=== PATIENT | male | born 1960 | race Hispanic/Latino ===

== ENCOUNTER 2018-10-01 14:36 | Inpatient (IN) | payer BC ==
[2018-10-01] MEDS ORDERED: Cefepime 2 GM VIAL ONE (15:14)
[2018-10-01] MEDS ORDERED: Acetaminophen 500 MG TAB ONE (15:14)
[2018-10-01] MEDS ORDERED: Morphine 4 MG/ML VIAL ONE (15:16)
[2018-10-01] MEDS ORDERED: Lidocaine 1% w/Epinephrine 1:100K 20 ML VIAL ONE (15:17)
[2018-10-01 15:23] LABS: #Eosinphils 0.2 thou/uL (0.0-0.7); #Monocytes 0.9 thou/uL (0.11-0.59); #Neutrophils 12.6 thou/uL (1.40-6.50); %Basophils 0.1 % (0.0-1.0); %Eosinophils 1.2 % (0.0-10.0); %Monocytes 5.4 % (0.0-10.0); %Neutrophils 80.2 % (42.0-75.0); Hemoglobin 12.1 g/dL (14.0-18.0); Mean Corpuscular HGB CONC 33.8 g/dL (32.0-36.0); Mean Corpuscular Hemoglobin 31.2 pg (27.0-31.0); Mean Corpuscular Volume 92.2 fL (78.0-98.0); Mean Platelet Volume 9.1 fL (7.4-10.4); Platelet Count 222 thou/uL (130-400); RBC Distribution Width 12.3 % (11.5-14.5); Red Blood Cell (RBC) Count 3.87 mill/uL (4.70-6.10); White Blood Cell (WBC) Count 15.6 thou/uL (4.8-10.8)
[2018-10-01 15:45] LABS: ALT (SGPT) 19 U/L (8-55); AST (SGOT) 9 U/L (5-34); Albumin 3.7 g/dL (3.5-5.0); Alkaline Phosphatase 119 U/L (40-150); Anion Gap 18 mmol/L (10-20); BUN (Urea Nitrogen) 23 mg/dL (8.4-25.7); Bilirubin, Total 0.7 mg/dL (0.2-1.2); Calc. Creatinine Clearance 0 mL/min (70-130); Calcium 9.1 mg/dL (7.8-10.44); Carbon Dioxide 20 mmol/L (22-29); Chloride 93 mmol/L (98-107); Estimated GFR-MDRD 48; Potassium 3.6 mmol/L (3.5-5.1); Protein, Total 6.7 g/dL (6.0-8.3); Sodium 127 mmol/L (136-145)
[2018-10-01 15:52] LABS: Glucose 671 mg/dL (70-105)
[2018-10-01] MEDS ORDERED: Insulin Regular 300 UNITS/3 ML VIAL ONE (16:43)
--- NOTE | 2018-10-01 17:54 | RAD ---
EXAM: CHEST ONE VIEW HISTORY: Wound to posterior right thigh for 6 weeks. Patient is tachycardic and febrile. COMPARISON: None FINDINGS: A right subclavian central venous catheter is noted in place with the tip overlying the expected loca tion of the cavoatrial junction. No pneumothorax is identified. The cardiac silhouette is magnified by projection. Pulmonary vasculature is within normal limits. There is suboptimal evaluation of the l eft lung base primarily related to the technique of the exam and overlying soft tissue density. Left pleural effusion, atelectasis, or infiltrate cannot be entirely excluded. The lungs are otherwis e clear. The osseous structures are intact. IMPRESSION: 1. Suboptimal evaluation left lung base. Pleural fluid, infiltrate, or atelectasis would be difficult to exclude. 2. Right subclavian central venous catheter noted in place. No pneumothorax is seen.
[2018-10-01 18:55] VITALS: BMI 49.8
[2018-10-01 19:30] LABS: Lactic Acid 1.8 mmol/L (0.5-2.2)
[2018-10-01] MEDS ORDERED: Sodium Chloride 0.9% 1,000 ML IV SCH (19:35)
[2018-10-01] MEDS ORDERED: Guaifenesin DM 100-10/5 ML UDCUP PO PRN (20:19)
[2018-10-01] MEDS ORDERED: Senokot S 8.6-50 MG TAB PO PRN (20:19)
[2018-10-01] MEDS ORDERED: HumaLOG 300 UNITS/3 ML VIAL SC PRN (20:19)
[2018-10-01] MEDS ORDERED: Dextrose 50% Abboject 50 ML SYRINGE SLOW IVP PRN (20:19)
[2018-10-01] MEDS ORDERED: Dextrose 5% in Water 1,000 ML IV PRN (20:19)
[2018-10-01] MEDS ORDERED: HYDROcodone/Acetaminophen 5/325 mg Tablet PO PRN (20:19)
[2018-10-01] MEDS ORDERED: Bisacodyl 10 MG SUPP PR PRN (20:19)
[2018-10-01] MEDS ORDERED: Ondansetron PF 4 MG/2 ML Vial IVP PRN (20:19)
[2018-10-01] MEDS ORDERED: Acetaminophen 325 MG TAB PO PRN (20:19)
[2018-10-01 20:43] LABS: Fibrinogen 571 mg/dL (253-463); Platelet Count 190 thou/uL (130-400)
[2018-10-01 20:44] LABS: INR-International Normal Ratio 1.2; PTT 30.4 SEC (22.9-36.1); Prothrombin Time 14.8 SEC (12.0-14.7)
[2018-10-01 20:46] LABS: Hemoglobin A1c 9.6 % (4.0-6.0)
[2018-10-01 20:51] LABS: Lactic Acid 1.5 mmol/L (0.5-2.2)
[2018-10-01 20:58] LABS: FSP-Qualitative Normal (Normal)
[2018-10-01] MEDS: Piperacillin/Tazobactam 4.5 GM in Sodium Chloride 0.9% 100 ML IVPB SCH (21:02)
[2018-10-01] MEDS: Lactated Ringer's 1,000 ML IV SCH (21:02)
[2018-10-01] MEDS: Famotidine 20 MG TAB PO SCH (21:02)
[2018-10-01] MEDS: Insulin Glargine 20 UNITS in Pre-Filled Syringe 1 EACH SC SCH (21:28)
--- NOTE | 2018-10-01 22:06 | HP ---
REASON FOR ADMISSION: Sepsis, right posterior thigh large abscess, diabetes mellitus type 2, uncontrolled with serum sugars of 671, metabolic acidosis, acute kidney injury, and moderate dehydration. HISTORY OF PRESENTING ILLNESS: The patient gives history of having a wound in his posterior thigh for the last 6 weeks. This has been gradually enlarging. This afternoon, the patient started to have severe pain and could not extend his legs. He finally called his nephew who saw the wound and brought him to the emergency room. The initial plan was to go see his primary care physician, Dr. Llamas, but seeing the wound, the nephew brought him to emergency room. He has been feeling bad for the last 3 or 4 days now. He has had subjective fever. On arrival, the patient had a temperature of 101.8 degrees. He was evaluated by Dr. Rahman in the ER and has had bedside incision and drainage and the cultures have been taken. PAST MEDICAL AND SURGICAL HISTORY: Diabetes mellitus type 2, dyslipidemia, obesity, hypertension, and ventral hernia repair. CURRENT MEDICATIONS: Please note the patient does not recall any of his medication. He is not taking any insulins for sure. He gets mail order pharmacy and the nephew, who is here at bedside, will try to call us with medications. ALLERGIES: NO KNOWN DRUG ALLERGIES. PERSONAL HISTORY: Smokes 1-3 cigarettes a day. Does not abuse alcohol or drugs. He lives alone. He is not . No children. FAMILY HISTORY: Mother in her 70s. Father in his 60s. There is no history of CT, cancer or stroke in the family. SOCIAL HISTORY: The patient ambulates by himself. Works at [employer]. CODE STATUS: Full. Power of research attorney is his nephew, Mr. Chino Aranda, number to reach him is [phone]. REVIEW OF SYSTEMS: CONSTITUTIONAL: Negative for weight loss or gain, ability to conduct usual activities. SKIN: Negative for rash, itching. EYES: Negative for double vision, pain. ENT/MOUTH: Negative for nose bleeding, neck stiffness, pain, tenderness. CARDIOVASCULAR: Negative for palpitations, dyspnea on exertion, orthopnea. RESPIRATORY: Negative for shortness of breath, wheezing, cough, hemoptysis, fever or night sweats. GASTROINTESTINAL: Negative for poor appetite, abdominal pain, heartburn, nausea , vomiting, constipation, or diarrhea. GENITOURINARY: Negative for urgency, frequency, dysuria, nocturia. MUSCULOSKELETAL: Negative for pain, swelling. NEUROLOGIC/PSYCHIATRIC: Negative for anxiety, depression. ALLERGY/IMMUNOLOGIC: Negative for skin rash, bleeding tendency. PHYSICAL EXAMINATION: GENERAL: The patient is a 58-year-old male, who is currently not in any acute distress. VITAL SIGNS: Blood pressure 140/70, pulse 130 per minute, respiratory rate 20 per minute, temperature 101.8 degrees Fahrenheit, his blood pressure dropped to 70/ 50 around 0310 hours. He was given a total of 3 L bolus in the ER. The patient has had a central line placed. NECK: Supple. No elevated JVD. HEENT: Eyes; extraocular muscles are intact. Pupils reacting to light. Oral cavity, mucous membranes are dry. No exudates or congestion. CARDIOVASCULAR: S1 and S2 heard. Tachycardic. No murmur. RESPIRATORY: Air entry 1+ bilateral. No rales or rhonchi. ABDOMEN: Soft. Bowel sounds heard. No tenderness, rigidity, or guarding. EXTREMITIES: The patient has a large 11 cm x 11 cm abscess on the posterior thigh of the right leg. He has had incision and drainage done and the wound is covered with dressing at present. Extremities, no peripheral edema or calf tenderness. VASCULAR: Peripheral pulses 1+ bilateral. No ischemic ulcerations or gangrene. CENTRAL NERVOUS SYSTEM: No gross focal deficits noted. NEURO: The patient is alert, awake, and oriented well. PSYCHIATRIC: The patient's mood is euthymic. No hallucinations or delusions. LABORATORY DATA: Sodium 127, potassium 3.6, serum bicarb 20, BUN 23, creatinine 1.52, glucose 671. Lactic acid 5.1, serum osmolality 300. Liver enzymes within normal limits. Albumin is 3.7. HbA1c done is 9.6. White count of 15, H and H 12 and 35, platelet count 222 with 80% neutrophils and MCV is 92. EKG done shows sinus tach at 116 beats per minute. There is Q-wave seen in leads III, aVF and V2, and V3. CLINICAL IMPRESSION AND PLAN: The patient will be admitted to medical floor. The initial plan was to send him to ICU, but his systolic blood pressure has come up to 120 after 3 L of IV fluids. He will be kept n.p.o. after midnight. I have spoken to Dr. Fraire, who will evaluate the patient with wound care in the morning. He will be on Zosyn and vancomycin. Cultures have been obtained in the ER and we will follow up on the results. Home medications are unknown at present and his nephew will call us in with the names of the medications from home. He will be on Levemir. We will give him 20 units of Levemir tonight and 10 units from morning. We will keep him on lactated Ringer's at 75 mL per hour. We will closely watch his potassium levels in the morning. Aspirin 81 mg daily. We will hold off on other cardiac medications as of now. He has EKG changes suggestive of possible prior CT. Echo with 2D Doppler will be obtained for LV function. The patient is totally asymptomatic as to chest pain or shortness of breath at present. We will continue to closely monitor him on medical floor. If the patient's blood pressures were to drop, he will be placed on pressors and transferred to ICU for close monitoring. We will obtain a portable chest x-ray as well in view of sepsis. Job ID: [id number] [facility]ITAL[facility]annah
[2018-10-01] MEDS ORDERED: Vancomycin HCl 1 GM in Premix Bag 1 BAG IVPB SCH (23:59)
[2018-10-02] MEDS ORDERED: Cefepime 2 GM in Sodium Chloride 0.9% 100 ML IVPB SCH (03:00)
[2018-10-02] MEDS ORDERED: Vancomycin HCl 1 GM in Premix Bag 1 BAG IVPB SCH (04:00)
[2018-10-02] MEDS: Piperacillin/Tazobactam 4.5 GM in Sodium Chloride 0.9% 100 ML IVPB SCH ×3 (05:47→22:39)
[2018-10-02 06:18] LABS: #Eosinphils 0.2 thou/uL (0.0-0.7); #Lymphocytes 1.8 thou/uL (1.20-3.40); #Monocytes 0.4 thou/uL (0.11-0.59); #Neutrophils 6.4 thou/uL (1.40-6.50); %Basophils 0.1 % (0.0-1.0); %Eosinophils 2.5 % (0.0-10.0); %Lymphocytes 20.1 % (21.0-51.0); %Monocytes 4.2 % (0.0-10.0); %Neutrophils 73.2 % (42.0-75.0); Hemoglobin 11.1 g/dL (14.0-18.0); Mean Corpuscular HGB CONC 31.9 g/dL (32.0-36.0); Mean Corpuscular Hemoglobin 30.4 pg (27.0-31.0); Mean Corpuscular Volume 95.6 fL (78.0-98.0); Mean Platelet Volume 8.6 fL (7.4-10.4); Platelet Count 191 thou/uL (130-400); RBC Distribution Width 12.8 % (11.5-14.5); Red Blood Cell (RBC) Count 3.63 mill/uL (4.70-6.10); White Blood Cell (WBC) Count 8.7 thou/uL (4.8-10.8)
[2018-10-02 06:30] LABS: Anion Gap 12 mmol/L (10-20); BUN (Urea Nitrogen) 23 mg/dL (8.4-25.7); Calc. Creatinine Clearance 165 mL/min (70-130); Calcium 8.3 mg/dL (7.8-10.44); Carbon Dioxide 21 mmol/L (22-29); Cardiac Risk 2.6 (Less than 4.5); Chloride 106 mmol/L (98-107); Cholesterol 97 mg/dl (< 200 Desired); Estimated GFR-MDRD 88; Glucose 216 mg/dL (70-105); HDL Cholesterol 37 mg/dL (>60 Neg Risk); LDL Cholesterol, Calculated 42 mg/dL; Potassium 3.9 mmol/L (3.5-5.1); Sodium 135 mmol/L (136-145); Triglycerides 90 mg/dL (Less than 150)
--- NOTE | 2018-10-02 08:07 | RAD ---
CHEST 1 VIEW: HISTORY: Followup tachycardia and fever. COMPARISON: Followup 10/01/2018 chest x-ray. FINDINGS: Minimal cardiomegaly. Right central line in place. No confluent pneumonia, overt edema, or pleural effusion. IMPRESSION: Cardiomegaly. Stable central line on the right. No significant new intrathoracic disease. POS: OFF
[2018-10-02] MEDS: Famotidine 20 MG TAB PO SCH ×2 (08:49→19:43)
[2018-10-02] MEDS: Aspirin 81 mg Enteric Coated Tablet PO SCH (08:49)
[2018-10-02] MEDS: Insulin Glargine 10 UNITS in Pre-Filled Syringe 1 EACH SC SCH (08:51)
[2018-10-02] MEDS: Enoxaparin Sodium 40 MG/0.4 ML SYRINGE SC SCH (08:51)
--- NOTE | 2018-10-02 10:24 | PDOC.HOSPP ---
- Subjective Encounter Date: 10/02/18 Encounter Time: 09:30 Subjective: feels better this am slept well last night no sob or pain - Objective Vital Signs & Weight: Vital Signs (12 hours) Temp Pulse Resp BP Pulse Ox 10/02/18 08:38 98 F 75 20 107/69 97 10/02/18 04:00 98.1 F 67 16 129/77 98 10/02/18 00:00 98.3 F 82 20 141/74 H 99 Weight Weight 281 lb 8 oz I&O: 10/01/18 10/02/18 10/03/18 06:59 06:59 06:59 Intake Total 1340 Output Total 650 Balance 690 Result Diagrams: 10/02/18 06:00 10/02/18 06:00 Additional Labs: Accuchecks 10/02/18 10/02/18 10/01/18 05:51 00:14 19:47 POC Glucose 227 H 342 H 399 H 10/01/18 18:10 POC Glucose 445 H ROS - Medication Medications: Active Medications Generic Name Dose Route Start Last Admin Trade Name Freq PRN Reason Stop Dose Admin Acetaminophen 650 mg 10/01/18 20:19 10/02/18 08:48 Tylenol PO 650 mg Q4H PRN Administration Headache/Fever/Mild Pain (1-3) Aspirin 81 mg 10/02/18 09:00 10/02/18 08:49 Ecotrin PO 81 mg DAILY MONTY Administration Enoxaparin Sodium 40 mg 10/02/18 09:00 10/02/18 08:51 Lovenox SC Not Given 0900 MONTY Famotidine 20 mg 10/01/18 21:00 10/02/18 08:49 Pepcid PO 20 mg BID MONTY Administration Insulin Glargine 20 units/ 0.2 mls @ 0 mls/hr 10/01/18 21:00 10/01/18 21:28 Miscellaneous Medication SC 0.2 mls HS MONTY Administration Insulin Glargine 10 units/ 0.1 mls @ 0 mls/hr 10/02/18 09:00 10/02/18 08:51 Miscellaneous Medication SC Not Given QAM MONTY Piperacillin Sod/Tazobactam 100 mls @ 200 mls/hr 10/01/18 22:00 10/02/18 05: 47 Sod 4.5 gm/ Sodium Chloride IVPB 100 mls Q8HR MONTY Administration Vancomycin HCl 1 gm/ Device 200 mls @ 200 mls/hr 10/02/18 04:00 10/02/18 04: 56 IVPB 200 mls 0400,1600 MONTY Administration Lactated Ringer's 1,000 mls @ 75 mls/hr 10/01/18 20:30 10/01/18 21:02 Lactated Ringer's IV 1,000 mls .[id number] MONTY Administration - Exam NAD, awake alert Eye: PERRL, anicteric sclera ENT: normocephalic atraumatic, no oropharyngeal lesions, moist mucosa Neck: supple, no JVD Heart: RRR, no murmur Respiratory: no wheezes, no rales Gastrointestinal: soft, non-tender, non-distended, normal bowel sounds Extremeties - other findings: right post thigh wound is in dressing Neurological: CN's grossly intact, no focal deficits Psychiatric: normal affect, A&O x 3 Hosp A/P (1) Abscess of right thigh Code(s): L02.415 - CUTANEOUS ABSCESS OF RIGHT LOWER LIMB Status: Acute (2) DM type 2 (diabetes mellitus, type 2) Status: Chronic Qualifiers: Diabetes mellitus superintendent terminal insulin use: without nursing home use Diabetes mellitus complication status: with hyperglycemia Qualified Code(s): E11.65 - Type 2 diabetes mellitus with hyperglycemia (3) Sepsis Code(s): A41.9 - SEPSIS, UNSPECIFIED ORGANISM Status: Acute Qualifiers: Sepsis type: sepsis due to unspecified organism Sepsis acute organ dysfunction status: without acute organ dysfunction Qualified Code(s): A41.9 - Sepsis, unspecified organism (4) Obesity Code(s): E66.9 - OBESITY, UNSPECIFIED Status: Chronic Qualifiers: Obesity classification: adult class 3 (BMI >= 40) Body mass index: BMI 45.0 -49.9 - Plan is on vanc and zosyn is npo for possible debridement by after taking a look with wound care this am fingerstick glucose is slowly trending down from 700's to 200's continue lantus, add metformin and glimepride on asp, lipid profile is normal, await echo results, will need outpt stress test elise gave full updates to patient and his nephew over phone
[2018-10-02] MEDS: Lactated Ringer's 1,000 ML IV SCH (11:26)
[2018-10-02 15:21] LABS: Vancomycin, Trough 9.5 ug/mL
[2018-10-02] MEDS: metFORMIN 500 MG TAB PO SCH (17:08)
[2018-10-02] MEDS: Vancomycin HCl 1.75 GM in Sodium Chloride 0.9% 500 ML IVPB SCH (17:09)
[2018-10-02] MEDS: HumaLOG 300 UNITS/3 ML VIAL SC PRN (17:10)
[2018-10-02] MEDS: Insulin Glargine 20 UNITS in Pre-Filled Syringe 1 EACH SC SCH (20:14)
--- NOTE | 2018-10-02 22:45 | CON ---
DATE OF CONSULTATION: REASON FOR CONSULT: Right posterior thigh abscess. HISTORY OF PRESENT ILLNESS: Mr. Aranda is a 58-year-old man who reports a 6-week history of pain and swelling on his right posterior thigh. He is a diabetic, but denies any injury to the area. He states that it became worse on the day before admission. So he asked the family member to look at it and was urged to come into the emergency room. In the emergency room, he was diagnosed with an abscess and the ER doctor performed an incision and drainage at the bedside. He has had a fair amount of drainage from the area since then and is feeling somewhat better today with less pain in the region. He has had some fevers at home and had a temperature of 101.8 degrees in the ER. He was also found to be fairly dehydrated and received IV fluids with improvement. PAST MEDICAL HISTORY: Diabetes, morbid obesity, hypertension, and hyperlipidemia. PAST SURGICAL HISTORY: Hernia repair. MEDICATIONS: Outpatient medications are not known by the patient, but his nephew is going to try to provide a list for the nurses. Inpatient medications include; 1. Aspirin. 2. Sliding scale insulin. 3. Lovenox. 4. Pepcid. 5. Glimepiride. 6. Glargine insulin. 7. Metformin. 8. Zosyn. 9. Vancomycin. ALLERGIES: HE HAS NO KNOWN DRUG ALLERGIES. REVIEW OF SYSTEMS: A 10-system review of systems is negative except per HPI. PHYSICAL EXAMINATION: VITAL SIGNS: The patient is afebrile. Heart rate in the 70s, respirations 20, 95% saturated on room air, blood pressure 101/67. GENERAL: Reveals a morbidly obese gentleman, in no acute distress. He is not flushed or toxic in appearance. He is not jaundiced or icteric. HEENT: Unremarkable. NECK: Supple without lymphadenopathy or thyroid nodules. HEART: Regular in its rate and rhythm without murmurs, rubs, or gallops. LUNGS: Clear to auscultation bilaterally although breath sounds are distant. ABDOMEN: Soft, nontender, and nondistended. EXTREMITIES: Warm and well perfused without edema. He has an area of erythema and tenderness on his right posterior thigh. He has a looped Logan drain in place with purulent fluid on the dressing. On probing of the wounds, there is another tract tunneling somewhat inferior to the [place] drain, but not a large amount of pus in the wound and no necrotic tissue. NEUROLOGIC: No focal deficits. PSYCHIATRIC: Alert, oriented, and appropriate. Primarily Faroese speaking. LABORATORY DATA: His white count has come down from 15 to 8. Hematocrit is stable at 34, platelets 191. Sodium slightly low at 135, but other electrolytes are unremarkable. BUN and creatinine are 23 and 0.89. Blood sugars have been ranging from 163 to 342. ASSESSMENT: Right posterior thigh abscess status post incision and drainage in the emergency room. This appears to be completely drained, but he does have one tunnel that could potentially reaccumulate. Compared to the picture which was taken last night, the erythema appears to be improving. I asked the wound care team to irrigate and pack the wounds. If this is not adequate and there is still purulence building up inside the wound, I will plan to take him to the operating room tomorrow for washout and additional drainage. The patient is in agreement with this plan. All of his questions were answered. Job ID: [id number]
[2018-10-03] MEDS: Lactated Ringer's 1,000 ML IV SCH ×4 (04:12→23:50)
[2018-10-03] MEDS: Vancomycin HCl 1.75 GM in Sodium Chloride 0.9% 500 ML IVPB SCH ×2 (04:14→16:40)
[2018-10-03] MEDS: Piperacillin/Tazobactam 4.5 GM in Sodium Chloride 0.9% 100 ML IVPB SCH ×3 (06:00→22:12)
[2018-10-03] MEDS: Insulin Glargine 10 UNITS in Pre-Filled Syringe 1 EACH SC SCH (08:46)
[2018-10-03] MEDS: metFORMIN 500 MG TAB PO SCH ×2 (08:46→17:10)
[2018-10-03] MEDS: Aspirin 81 mg Enteric Coated Tablet PO SCH (08:46)
[2018-10-03] MEDS: Famotidine 20 MG TAB PO SCH ×2 (08:46→20:28)
[2018-10-03] MEDS: Glimepiride 4 MG TAB PO SCH (08:46)
[2018-10-03] MEDS: Enoxaparin Sodium 40 MG/0.4 ML SYRINGE SC SCH ×2 (08:47→12:30)
[2018-10-03] MEDS: HumaLOG 300 UNITS/3 ML VIAL SC PRN ×2 (12:31→17:11)
[2018-10-03 16:01] LABS: Vancomycin, Trough 15.1 ug/mL
[2018-10-03] MEDS: Insulin Glargine 20 UNITS in Pre-Filled Syringe 1 EACH SC SCH (20:32)
--- NOTE | 2018-10-03 22:22 | PDOC.HOSPP ---
- Subjective Subjective: Spoke with [employer]. Doing well. No complaints. - Objective Vital Signs & Weight: Vital Signs (12 hours) Temp Pulse Resp BP Pulse Ox 10/03/18 19:00 97.9 F 84 18 133/75 96 Weight Admit Weight 281 lb 8 oz Weight 281 lb 3.2 oz I&O: 10/02/18 10/03/18 10/04/18 06:59 06:59 06:59 Intake Total 1340 3840 2100 Output Total 650 2000 1500 Balance 690 1840 600 Result Diagrams: 10/02/18 06:00 10/02/18 06:00 Additional Labs: Accuchecks 10/03/18 10/03/18 10/03/18 19:44 16:51 11:32 POC Glucose 123 H 153 H 175 H 10/03/18 04:22 POC Glucose 159 H Hospitalist ROS - Medication Medications: Active Medications Generic Name Dose Route Start Last Admin Trade Name Freq PRN Reason Stop Dose Admin Acetaminophen 650 mg 10/01/18 20:19 10/02/18 08:48 Tylenol PO 650 mg Q4H PRN Administration Headache/Fever/Mild Pain (1-3) Aspirin 81 mg 10/02/18 09:00 10/03/18 08:46 Ecotrin PO 81 mg DAILY MONTY Administration Enoxaparin Sodium 40 mg 10/02/18 09:00 10/03/18 12:30 Lovenox SC 40 mg 0900 MONTY Administration Famotidine 20 mg 10/01/18 21:00 10/03/18 20:28 Pepcid PO 20 mg BID MONTY Administration Glimepiride 4 mg 10/03/18 07:30 10/03/18 08:46 Amaryl PO 4 mg DAILY-AC MONTY Administration Insulin Glargine 20 units/ 0.2 mls @ 0 mls/hr 10/01/18 21:00 10/03/18 20:32 Miscellaneous Medication SC Not Given HS MONTY Insulin Glargine 10 units/ 0.1 mls @ 0 mls/hr 10/02/18 09:00 10/03/18 08:46 Miscellaneous Medication SC 0.1 mls QAM MONTY Administration Piperacillin Sod/Tazobactam 100 mls @ 200 mls/hr 10/01/18 22:00 10/03/18 22: 12 Sod 4.5 gm/ Sodium Chloride IVPB Not Given Q8HR MONTY Lactated Ringer's 1,000 mls @ 75 mls/hr 10/01/18 20:30 10/03/18 12:30 Lactated Ringer's IV Not Given .[id number] MONTY Vancomycin HCl 1.75 gm/ Sodium 500 mls @ 250 mls/hr 10/02/18 16:00 10/03/18 16:40 Chloride IVPB 500 mls 0400,1600 MONTY Administration Insulin Human Lispro 0 units 10/01/18 20:19 10/03/18 17:11 Humalog SC 3 unit .AGGRESSIVE SLIDING PRN Administration Aggressive Correctional Scale Metformin HCl 1,000 mg 10/02/18 17:00 10/03/18 17:10 Glucophage PO 1,000 mg BID-WM MONTY Administration - Exam General Appearance: NAD General - other findings: Obese ENT: normocephalic atraumatic, no oropharyngeal lesions, moist mucosa Heart: RRR, no murmur, no gallops, no rubs, normal peripheral pulses Respiratory: CTAB, no wheezes, no rales, no ronchi, normal chest expansion, no tachypnea, normal percussion Gastrointestinal: soft, non-tender, non-distended, normal bowel sounds, no palpable masses, no hepatomegaly, no splenomegaly, no bruit Extremities: no cyanosis, no clubbing, no edema Extremeties - other findings: Right post thigh wound with drain in place. Minimal cellulitic changes. Musculoskeletal: normal tone, normal strength, no muscle wasting Psychiatric: normal affect, normal behavior, A&O x 3 Hosp A/P (1) Morbid obesity Code(s): E66.01 - MORBID (SEVERE) OBESITY DUE TO EXCESS CALORIES Status: Acute (2) Abscess of right thigh Code(s): L02.415 - CUTANEOUS ABSCESS OF RIGHT LOWER LIMB Status: Acute (3) Sepsis Code(s): A41.9 - SEPSIS, UNSPECIFIED ORGANISM Status: Acute Qualifiers: Sepsis type: sepsis due to unspecified organism Sepsis acute organ dysfunction status: without acute organ dysfunction Qualified Code(s): A41.9 - Sepsis, unspecified organism (4) DM type 2 (diabetes mellitus, type 2) Status: Chronic Qualifiers: Diabetes mellitus [facility] insulin use: without termite treater helper use Diabetes mellitus complication status: with hyperglycemia Qualified Code(s): E11.65 - Type 2 diabetes mellitus with hyperglycemia - Plan Patient eager to go home. Discussed with Dr. Fraire. The abscess tunnels in a "V" shape and needs to be packed. No surgical intervention indicated. OK to discharge when family trained to care for wound. On families arrival, the nephew indicated that the patient lives alone and there is no one available to manage the wound. Discharge held. Will to stay until the wound no longer needs packing or OP wound care can be arranged. Blood sugars are doing ok. Unsure of his home meds. Continue metformin.
[2018-10-04] MEDS: Vancomycin HCl 1.75 GM in Sodium Chloride 0.9% 500 ML IVPB SCH (04:07)
[2018-10-04] MEDS: HumaLOG 300 UNITS/3 ML VIAL SC PRN (06:13)
[2018-10-04] MEDS: Piperacillin/Tazobactam 4.5 GM in Sodium Chloride 0.9% 100 ML IVPB SCH (06:29)
[2018-10-04 08:05] VITALS: BP 125/76; TEMP 98.1
[2018-10-04] MEDS: Aspirin 81 mg Enteric Coated Tablet PO SCH (09:02)
[2018-10-04] MEDS: Famotidine 20 MG TAB PO SCH (09:02)
[2018-10-04] MEDS: metFORMIN 500 MG TAB PO SCH (09:02)
[2018-10-04] MEDS: Insulin Glargine 10 UNITS in Pre-Filled Syringe 1 EACH SC SCH (09:03)
[2018-10-04] MEDS: Glimepiride 4 MG TAB PO SCH (09:05)
[2018-10-04] MEDS: Enoxaparin Sodium 40 MG/0.4 ML SYRINGE SC SCH (09:13)
[2018-10-04] MEDS ORDERED: Amoxicillin/Potassium Clav 875 MG TAB PO SCH ×2 (11:00→21:00)
--- NOTE | 2018-10-04 11:04 | PDOC.EVN ---
Event Note - Event Note Event Note: Discharged to home. summary dictated. #[id number]
[2018-10-04 11:05] LABS: #Eosinphils 0.3 thou/uL (0.0-0.7); #Lymphocytes 2.1 thou/uL (1.20-3.40); #Monocytes 0.4 thou/uL (0.11-0.59); %Basophils 0.5 % (0.0-1.0); %Eosinophils 4.2 % (0.0-10.0); %Lymphocytes 30.6 % (21.0-51.0); %Monocytes 6.3 % (0.0-10.0); %Neutrophils 58.5 % (42.0-75.0); Hemoglobin 12.1 g/dL (14.0-18.0); Mean Corpuscular HGB CONC 34.5 g/dL (32.0-36.0); Mean Corpuscular Volume 92.6 fL (78.0-98.0); Mean Platelet Volume 7.2 fL (7.4-10.4); Platelet Count 206 thou/uL (130-400); RBC Distribution Width 12.4 % (11.5-14.5); White Blood Cell (WBC) Count 6.8 thou/uL (4.8-10.8)
--- NOTE | 2018-10-04 11:27 | DIS ---
DATE OF ADMISSION: 10/01/2018 DATE OF DISCHARGE: 10/04/2018 PRIMARY CARE PHYSICIAN: Dallin Llamas MD DISCHARGE DIAGNOSES: 1. Severe sepsis with hypotension. 2. Right posterior thigh abscess with cellulitis. 3. Uncontrolled hypertension. 4. Morbid obesity. 5. Possible obstructive sleep apnea. 6. Diastolic heart failure. 7. Mild mitral regurgitation. 8. Status post incision and drainage of the thigh abscess. 9. Acute kidney injury. 10. Metabolic acidosis. 11. Hyponatremia. CONSULT: General Surgery. HOSPITAL COURSE: A 58-year-old obese male with known history of diabetes, admitted due to right posterior thigh swelling and pain associated with fever. The patient was found to be hypotensive on presentation as well as hyponatremic and had features of sepsis. He was resuscitated with IV fluid with improvement in blood pressure. The ED physician incised the abscess with drainage of significant amount of purulent material and culture was sent to lab. Culture came back positive for MSSA. The patient also was found to have elevated creatinine of 1.52 on presentation, as well as sodium of 127 and markedly elevated blood glucose of 671 with lactic acidosis. He was treated with IV fluid and insulin therapy with improvement in renal function and electrolyte derangements. Sodium resolved and creatinine return back to baseline of 0.89. Glycemic control improved with addition of Lantus and sliding scale insulin. General Surgery consult was obtained, and following re-evaluation of the wound, he recommended packing and no further surgical intervention. The patient remained stable and was subsequently discharged back home to complete oral antibiotics. The patient with morbid obesity as well as short and thick neck was noted to be snoring in this hospital. There is a high risk of obstructive sleep apnea. Echocardiogram obtained showed diastolic dysfunction as well as mild mitral and tricuspid regurgitation. The patient was advised to follow up with PCP for referral to sleep study to rule in or rule out obstructive sleep apnea. The patient also was advised to lose weight. PHYSICAL EXAMINATION: VITAL SIGNS: Temperature 98.1, pulse 70, respiratory rate 18, SpO2 of 98 on room air, and blood pressure is 125/76. GENERAL: Obese male, in no obvious distress. Afebrile. Anicteric. Acyanotic. HEENT: Normocephalic and atraumatic. Oral mucosa is moist. NECK: Short and thick neck with excess subcutaneous tissue. CARDIOVASCULAR: Regular rhythm and rate with normal heart sounds one and two. RESPIRATORY: Fair air entry bilaterally with few transmitted sounds. There is no respiratory distress or use of accessory muscles. GI: Obese with pannus. Nontender with normal bowel sounds. EXTREMITIES: Posterior right thigh dressing noted. No edema or obvious erythema was appreciated. Other extremities are grossly normal and atraumatic with no edema or erythema. SALES PLANNING COORDINATOR: Conscious and alert and oriented x3 with appropriate mental status. Cranial nerves 2 through 12 are grossly intact. DISCHARGE DISPOSITION: Home with home health. DISCHARGE CONDITION: Improved. DISCHARGE MEDICATIONS: 1. Glimepiride 4 mg p.o. daily. 2. Linagliptin/metformin 2.06/999 one tablet p.o. b.i.d. 3. Augmentin 875 mg p.o. b.i.d. for 14 days. 4. Aspirin 81 mg p.o. daily. 5. Insulin Lantus 20 units subcutaneously daily. FOLLOWUP: With PCP in 3 to 5 days. The patient will be seen by home health for wound care and medication management. Discharge took more than 38 minutes. Job ID: [id number]
[2018-10-04 11:29] LABS: Anion Gap 12 mmol/L (10-20); BUN (Urea Nitrogen) 10 mg/dL (8.4-25.7); Calc. Creatinine Clearance 204 mL/min (70-130); Calcium 9.6 mg/dL (7.8-10.44); Carbon Dioxide 27 mmol/L (22-29); Chloride 107 mmol/L (98-107); Estimated GFR-MDRD Greater than 90; Glucose 126 mg/dL (70-105); Potassium 4.8 mmol/L (3.5-5.1); Sodium 141 mmol/L (136-145)
--- NOTE | 2018-10-05 10:03 | PQF ---
BLADIMIR BURKS OBI, CHIZOBA C [id number] CLINICAL DOCUMENTATION CLARIFICATION FORM: POST DISCHARGE Addendum to original discharge summary date: ____ Late entry note date: __ DATE:10/05/18 ATTN:Jovany Esquivel Obi Please exercise your independent, professional judgment in responding to the clarification form. Clinical indicators are provided on the bottom of this form for your review Can you please specify whether Septic shock is ruled in or ruled out during this encounter? Please check appropriate box(s) to clarify if the following diagnosis has been ruled in or ruled out: Septic shock [ ] Ruled in diagnosis [ ] Continue to treat [ ] Resolved [ ] Ruled out diagnosis [ ] Cannot rule out diagnosis [ ] Other diagnosis please specify: [ ] Unable to determine For continuity of documentation, please document condition throughout progress notes and discharge summary. Thank You. CLINICAL INDICATORS: -ED Notes 10/01 - "Sepsis and septic shock due to large thigh abscess" -H&P 10/01 - "Temp 101.8 degrees" -H&P 10/01 - "his blood pressure dropped to 70/50" -DS 10/04 - "Severe sepsis with hypotension" RISK FACTOR: -H&P 10/01 - thigh abscess -H&P 10/01 - DM uncontrolled -H&P 10/01 - sepsis -H&P 10/01 - obesity -DS 10/04 - Right thigh cellulitis TREATMENTS: -ED Notes 10/01 - I&D of abscess -H&P 10/01 - wound culture -H&P 10/01 - 3L IV bolus -H&P 10/01 - admit to ICU -H&P 10/01 - Zosyn IV -H&P 10/01 - Vancomycin 1gm IV (This form is maintained as a part of the permanent medical record) 2014 [employer], [employer]. All Rights Reserved Verena [email or web address] [not provided] MTDD
== END 2018-10-04 17:08 | disposition home health service (06) | DRG 872 ==
LOC: ERS 14:36 → T4-A 18:29
PROVIDERS: ADMIT Internal Medicine; ATTEND Internal Medicine
PROC: 0H9HXZZ Drainage of Right Upper Leg Skin, External Approach (ICD-10-PCS; principal; 2018-10-01)
DX: A41.9 Sepsis, unspecified organism (principal); L03.115 Cellulitis of right lower limb; E87.2 Acidosis; N17.9 Acute kidney failure, unspecified; L02.415 Cutaneous abscess of right lower limb; Z68.42 Body mass index [BMI] 45.0-49.9, adult; I50.32 Chronic diastolic (congestive) heart failure; E87.1 Hypo-osmolality and hyponatremia; E86.0 Dehydration; E78.5 Hyperlipidemia, unspecified; F17.210 Nicotine dependence, cigarettes, uncomplicated; R65.20 Severe sepsis without septic shock; E11.65 Type 2 diabetes mellitus with hyperglycemia; E66.01 Morbid (severe) obesity due to excess calories; G47.33 Obstructive sleep apnea (adult) (pediatric); I11.0 Hypertensive heart disease with heart failure; I08.1 Rheumatic disorders of both mitral and tricuspid valves; Z79.899 Other long term (current) drug therapy; Z79.84 Long term (current) use of oral hypoglycemic drugs; Z79.82 Long term (current) use of aspirin
CPT/HCPCS: 10060; 36415; 36416; 36556; 71045; 80048; 80053; 80061; 80202; 83036; 83605; 83930; 85025; 85049; 85300; 85362; 85379; 85384; 85610; 85730; 87040; 87070; 87077; 87086; 87186; 87205; 93005; 93306; 96361; 96365; J0692; J1650; J1815; J2001; J2270; J2543; J3370; J3490; J7050

== ENCOUNTER 2019-05-23 08:28 | Outpatient (CLI) | payer BC ==
--- NOTE | 2019-05-23 09:10 | RAD ---
Exam: XR Knee Lt 2 View HISTORY: Left knee pain COMPARISON: None FINDINGS: Tricompartment osteophytosis is present. There is subchondral sclerosis and subchondral cystic change s involving the medial compartment left knee joint with severe joint space narrowing. There is subluxation of the tibia laterally with respect to the femur. A tiny rounded osseous density is seen in the anterior aspect of the knee joint at the level of the tibial spines suggesting a small intra-articular loose body measuring 5 mm. No acute fracture, dislocation, or other acute osseous abnormality is identified. IMPRESSION: 1. Osteoarthritis much greater involving the medial joint compartment left knee. 2. Small intra-articular loose body measuring 5 mm.
--- NOTE | 2019-05-23 10:54 | RAD ---
RIGHT KNEE 2 VIEWS: HISTORY: Right knee pain. FINDINGS/IMPRESSION: There are degenerative changes in the right knee with severe joint space narrowing involving the medi al tibial femoral compartment. No fracture, dislocation, or bony destruction is identified. POS: [id number]
== END 2019-05-23 08:29 | disposition home or self-care (01) ==
LOC: BICRAD 08:28
PROVIDERS: ATTEND Internal Medicine
DX: M25.561 Pain in right knee (principal); M25.562 Pain in left knee; G89.29 Other chronic pain; M17.0 Bilateral primary osteoarthritis of knee

== ENCOUNTER 2023-06-06 10:17 | Inpatient (IN) | payer BC, SELFPAY ==
[2023-06-06] MEDS ORDERED: dilTIAZem 25 MG/5 ML VIAL ONE (10:45)
[2023-06-06] MEDS ORDERED: Aspirin Chewable 81 MG TAB ONE (10:45)
[2023-06-06] MEDS ORDERED: Furosemide 40 MG (4 mL) VIAL ONE (10:45)
[2023-06-06 10:50] LABS: #Basophils 0.04 10x3/uL (0.0-0.2); %Basophils 0.5 % (0.0-1.0); %Eosinophils 1.7 % (0.0-10.0); %Lymphocytes 25.2 % (21.0-51.0); %Monocytes 7.2 % (0.0-10.0); %Neutrophils 65.3 % (42.0-75.0); Hematocrit 35.2 % (42.0-52.0); Hemoglobin 10.9 g/dL (14.0-18.0); Mean Corpuscular Hemoglobin 29.2 pg (27.0-31.0); Mean Corpuscular Volume 94.4 fL (78.0-98.0); Mean Platelet Volume 10.9 fL (7.4-10.4); Platelet Count 250 10x3/uL (130-400); RBC Distribution Width 14.3 % (11.5-14.5); Red Blood Cell (RBC) Count 3.73 mill/uL (4.70-6.10)
[2023-06-06 10:59] LABS: Anion Gap 16 mmol/L (10-20)
[2023-06-06] MEDS ORDERED: Cefepime 2 GM VIAL ONE (11:01)
[2023-06-06] MEDS ORDERED: Sodium Chloride 0.9% 100 ML ONE (11:01)
[2023-06-06 11:03] LABS: ALT (SGPT) 8 U/L (8-55); AST (SGOT) 11 U/L (5-34); Albumin 3.3 g/dL (3.4-4.8); Alkaline Phosphatase 91 U/L (40-110); BUN (Urea Nitrogen) 30 mg/dL (8.4-25.7); Bilirubin, Total 0.8 mg/dL (0.2-1.2); Calc. Creatinine Clearance 0 mL/min (70-130); Calcium 8.9 mg/dL (7.8-10.44); Carbon Dioxide 21 mmol/L (23-31); Chloride 107 mmol/L (98-107); Estimated GFR 30; Glucose 166 mg/dL (80-115); Magnesium 1.7 mg/dL (1.6-2.6); Potassium 4.3 mmol/L (3.5-5.1); Protein, Total 7.3 g/dL (5.8-8.1); Sodium 140 mmol/L (136-145)
[2023-06-06 11:13] LABS: PTT 33.1 sec (22.9-36.1); Prothrombin Time 13.5 sec (12.0-14.7)
[2023-06-06 12:27] LABS: Troponin I 0.013 ng/mL (< 0.028)
[2023-06-06] MEDS ORDERED: HYDROcodone/Acetaminophen 5/325 mg Tablet PO PRN ×2 (13:11)
[2023-06-06] MEDS ORDERED: Ondansetron PF 4 MG/2 ML Vial IVP PRN (13:11)
[2023-06-06] MEDS ORDERED: Ondansetron ODT 4 MG TAB PO PRN (13:11)
[2023-06-06] MEDS ORDERED: Acetaminophen 650 MG Suppository PR PRN (13:11)
[2023-06-06] MEDS ORDERED: Dextrose 5% in Water 1,000 ML IV PRN (13:14)
[2023-06-06] MEDS ORDERED: Dextrose 50% Abboject 50 ML SYRINGE SLOW IVP PRN (13:14)
[2023-06-06] MEDS ORDERED: Glucagon 1 MG/ML KIT IM PRN (13:14)
[2023-06-06] MEDS ORDERED: Magnesium 2 GM/50 ML(in water) 2 GM in Premix 1 BAG IVPB SCH (14:30)
[2023-06-06] MEDS ORDERED: Heparin 5,000 UNITS/ML VIAL SC SCH (15:00)
[2023-06-06 15:49] VITALS: BMI 74.9
[2023-06-06] MEDS: cefTRIAXone\\ROCEPHIN 2 GM in Sodium Chloride 0.9% 100 ML IVPB SCH (16:05)
[2023-06-06] MEDS: Apixaban 5 MG TAB PO SCH ×2 (16:05→21:17)
[2023-06-06] MEDS: Furosemide 40 MG (4 mL) VIAL SLOW IVP SCH (16:05)
[2023-06-06] MEDS: Azithromycin 500 MG in Sodium Chloride 0.9% 250 ML 250 ML IVPB SCH (16:05)
[2023-06-06] MEDS: Magnesium 2 GM/50 ML(in water) 2 GM in Premix 1 BAG IVPB SCH (16:06)
[2023-06-06 16:21] LABS: Troponin I 0.015 ng/mL (< 0.028)
[2023-06-06 19:33] LABS: Troponin I 0.018 ng/mL (< 0.028)
[2023-06-06] MEDS ORDERED: Insulin Glargine 30 UNITS/0.3 ML VIAL SC SCH (21:00)
[2023-06-06] MEDS: Insulin Glargine 30 UNITS/0.3 ML VIAL SC SCH (21:17)
[2023-06-06] MEDS: Famotidine 20 MG TAB PO SCH (21:17)
[2023-06-06] MEDS: Atorvastatin Calcium 20 MG TAB PO SCH (21:17)
[2023-06-07 04:34] LABS: #Basophils 0.04 10x3/uL (0.0-0.2); %Basophils 0.7 % (0.0-1.0); %Eosinophils 5.4 % (0.0-10.0); %Lymphocytes 26.3 % (21.0-51.0); %Monocytes 7.7 % (0.0-10.0); %Neutrophils 59.4 % (42.0-75.0); Hematocrit 34.9 % (42.0-52.0); Hemoglobin 10.4 g/dL (14.0-18.0); Mean Corpuscular HGB CONC 29.8 g/dL (32.0-36.0); Mean Corpuscular Hemoglobin 28.6 pg (27.0-31.0); Mean Corpuscular Volume 95.9 fL (78.0-98.0); Mean Platelet Volume 10.4 fL (7.4-10.4); Platelet Count 197 10x3/uL (130-400); RBC Distribution Width 14.2 % (11.5-14.5); Red Blood Cell (RBC) Count 3.64 mill/uL (4.70-6.10)
[2023-06-07 05:00] LABS: Anion Gap 14 mmol/L (10-20); Globulin 3.5 g/dL (2.4-3.5)
[2023-06-07 05:04] LABS: ALT (SGPT) 8 U/L (8-55); AST (SGOT) 12 U/L (5-34); Alkaline Phosphatase 72 U/L (40-110); BUN (Urea Nitrogen) 30 mg/dL (8.4-25.7); Bilirubin, Total 0.6 mg/dL (0.2-1.2); Calc. Creatinine Clearance 80 mL/min (70-130); Calcium 8.7 mg/dL (7.8-10.44); Carbon Dioxide 25 mmol/L (23-31); Chloride 108 mmol/L (98-107); Estimated GFR 36; Glucose 119 mg/dL (80-115); Magnesium 1.7 mg/dL (1.6-2.6); Potassium 4.8 mmol/L (3.5-5.1); Protein, Total 6.5 g/dL (5.8-8.1); Sodium 142 mmol/L (136-145)
[2023-06-07 05:05] LABS: Hemoglobin A1c 7.1 % (4.0-6.0)
[2023-06-07] MEDS: HumaLOG 300 UNITS/3 ML VIAL SC PRN (06:38)
[2023-06-07] MEDS: NIFEdipine XL 60 MG ER.TAB PO SCH (08:31)
[2023-06-08 04:24] LABS: #Basophils 0.03 10x3/uL (0.0-0.2); %Basophils 0.5 % (0.0-1.0); %Eosinophils 6.7 % (0.0-10.0); %Lymphocytes 27.5 % (21.0-51.0); %Monocytes 10.8 % (0.0-10.0); %Neutrophils 54.2 % (42.0-75.0); Hematocrit 32.7 % (42.0-52.0); Mean Corpuscular HGB CONC 30.6 g/dL (32.0-36.0); Mean Corpuscular Hemoglobin 28.7 pg (27.0-31.0); Mean Platelet Volume 10.7 fL (7.4-10.4); Platelet Count 188 10x3/uL (130-400); Red Blood Cell (RBC) Count 3.48 mill/uL (4.70-6.10)
[2023-06-08 04:58] LABS: Anion Gap 15 mmol/L (10-20); BUN (Urea Nitrogen) 29 mg/dL (8.4-25.7); Calc. Creatinine Clearance 87 mL/min (70-130); Calcium 8.8 mg/dL (7.8-10.44); Carbon Dioxide 25 mmol/L (23-31); Chloride 102 mmol/L (98-107); Estimated GFR 39; Glucose 135 mg/dL (80-115); Potassium 4.2 mmol/L (3.5-5.1); Sodium 138 mmol/L (136-145)
[2023-06-08] MEDS: Amiodarone 150 MG in Dextrose 5% in Water 100 ML IVPB SCH (16:08)
[2023-06-08] MEDS: Amiodarone 450 MG in Dextrose 5% in Water 250 ML IVPB SCH (16:42)
[2023-06-08] MEDS ORDERED: Carvedilol 6.25 MG TAB PO SCH (17:00)
[2023-06-08] MEDS: Metoprolol Tartrate 50 MG TAB PO SCH (21:17)
[2023-06-09] MEDS: Sodium Chloride 0.9% 250 ML IV SCH (03:13)
[2023-06-09 04:34] LABS: #Basophils 0.05 10x3/uL (0.0-0.2); %Basophils 0.8 % (0.0-1.0); %Eosinophils 5.9 % (0.0-10.0); %Monocytes 10.6 % (0.0-10.0); %Neutrophils 45.4 % (42.0-75.0); Hemoglobin 10.5 g/dL (14.0-18.0); Mean Corpuscular HGB CONC 30.9 g/dL (32.0-36.0); Mean Corpuscular Hemoglobin 28.8 pg (27.0-31.0); Mean Corpuscular Volume 93.2 fL (78.0-98.0); Mean Platelet Volume 10.9 fL (7.4-10.4); Platelet Count 208 10x3/uL (130-400); Red Blood Cell (RBC) Count 3.65 mill/uL (4.70-6.10)
[2023-06-09 04:54] LABS: Anion Gap 16 mmol/L (10-20); BUN (Urea Nitrogen) 33 mg/dL (8.4-25.7); Calc. Creatinine Clearance 76 mL/min (70-130); Calcium 8.7 mg/dL (7.8-10.44); Carbon Dioxide 22 mmol/L (23-31); Cardiac Risk 2.2 (Less than 4.5); Chloride 107 mmol/L (98-107); Cholesterol 93 mg/dl (< 200 Desired); Estimated GFR 33; Glucose 120 mg/dL (80-115); HDL Cholesterol 42 mg/dL (>60 Neg Risk); LDL Cholesterol, Calculated 33 mg/dL; Magnesium 1.8 mg/dL (1.6-2.6); Potassium 4.6 mmol/L (3.5-5.1); Sodium 140 mmol/L (136-145); Triglycerides 89 mg/dL (Less than 150)
[2023-06-09] MEDS: Acetaminophen 325 MG TAB PO PRN (08:09)
[2023-06-09 17:50] LABS: ALT (SGPT) 10 U/L (8-55); AST (SGOT) 16 U/L (5-34); Alkaline Phosphatase 64 U/L (40-110); Bilirubin, Direct 0.1 mg/dL (0.1-0.3); Bilirubin, Total 0.3 mg/dL (0.2-1.2); Protein, Total 6.5 g/dL (5.8-8.1)
[2023-06-09] MEDS: Metoprolol Tartrate 25 MG TAB PO SCH (20:16)
[2023-06-10 04:17] LABS: #Basophils 0.03 10x3/uL (0.0-0.2); %Basophils 0.5 % (0.0-1.0); %Eosinophils 7.9 % (0.0-10.0); %Lymphocytes 35.4 % (21.0-51.0); %Monocytes 12.7 % (0.0-10.0); %Neutrophils 43.2 % (42.0-75.0); Hematocrit 31.7 % (42.0-52.0); Hemoglobin 9.8 g/dL (14.0-18.0); Mean Corpuscular HGB CONC 30.9 g/dL (32.0-36.0); Mean Corpuscular Hemoglobin 28.7 pg (27.0-31.0); Platelet Count 185 10x3/uL (130-400); RBC Distribution Width 14.1 % (11.5-14.5); Red Blood Cell (RBC) Count 3.41 mill/uL (4.70-6.10)
[2023-06-10 04:43] LABS: Anion Gap 13 mmol/L (10-20); BUN (Urea Nitrogen) 34 mg/dL (8.4-25.7); Calc. Creatinine Clearance 89 mL/min (70-130); Calcium 8.8 mg/dL (7.8-10.44); Carbon Dioxide 24 mmol/L (23-31); Chloride 106 mmol/L (98-107); Estimated GFR 41; Glucose 123 mg/dL (80-115); Potassium 4.1 mmol/L (3.5-5.1); Sodium 139 mmol/L (136-145)
[2023-06-10] MEDS: Famotidine 20 MG TAB PO SCH (08:48)
[2023-06-10] MEDS: Sodium Chloride 0.9% 100 ML ONE (16:41)
[2023-06-10] MEDS: Amiodarone 200 MG TAB PO SCH (20:29)
[2023-06-11 06:27] LABS: #Basophils 0.03 10x3/uL (0.0-0.2); %Basophils 0.5 % (0.0-1.0); %Eosinophils 6.1 % (0.0-10.0); %Lymphocytes 28.6 % (21.0-51.0); %Monocytes 11.5 % (0.0-10.0); %Neutrophils 52.9 % (42.0-75.0); Hematocrit 36.7 % (42.0-52.0); Hemoglobin 11.2 g/dL (14.0-18.0); Mean Corpuscular HGB CONC 30.5 g/dL (32.0-36.0); Mean Corpuscular Hemoglobin 29.9 pg (27.0-31.0); Mean Corpuscular Volume 98.1 fL (78.0-98.0); Mean Platelet Volume 10.7 fL (7.4-10.4); Platelet Count 175 10x3/uL (130-400); RBC Distribution Width 14.3 % (11.5-14.5); Red Blood Cell (RBC) Count 3.74 mill/uL (4.70-6.10)
[2023-06-11 06:52] LABS: Anion Gap 14 mmol/L (10-20); BUN (Urea Nitrogen) 30 mg/dL (8.4-25.7); Calc. Creatinine Clearance 90 mL/min (70-130); Calcium 8.9 mg/dL (7.8-10.44); Carbon Dioxide 29 mmol/L (23-31); Chloride 105 mmol/L (98-107); Estimated GFR 43; Glucose 117 mg/dL (80-115); Potassium 4.1 mmol/L (3.5-5.1); Sodium 144 mmol/L (136-145)
[2023-06-11] MEDS: Furosemide 40 MG (4 mL) VIAL SLOW IVP SCH (14:46)
[2023-06-11] MEDS: Potassium Chloride 20 MEQ TAB PO SCH (17:42)
[2023-06-12 04:17] LABS: #Basophils 0.03 10x3/uL (0.0-0.2); %Basophils 0.6 % (0.0-1.0); %Eosinophils 5.4 % (0.0-10.0); %Lymphocytes 30.7 % (21.0-51.0); %Monocytes 13.1 % (0.0-10.0); Hematocrit 37.6 % (42.0-52.0); Hemoglobin 11.5 g/dL (14.0-18.0); Mean Corpuscular HGB CONC 30.6 g/dL (32.0-36.0); Mean Corpuscular Hemoglobin 28.7 pg (27.0-31.0); Mean Corpuscular Volume 93.8 fL (78.0-98.0); Mean Platelet Volume 11.2 fL (7.4-10.4); Platelet Count 173 10x3/uL (130-400); RBC Distribution Width 14.1 % (11.5-14.5); Red Blood Cell (RBC) Count 4.01 mill/uL (4.70-6.10)
[2023-06-12 04:42] LABS: Anion Gap 17 mmol/L (10-20); BUN (Urea Nitrogen) 27 mg/dL (8.4-25.7); Calc. Creatinine Clearance 100 mL/min (70-130); Calcium 9.3 mg/dL (7.8-10.44); Carbon Dioxide 28 mmol/L (23-31); Chloride 101 mmol/L (98-107); Estimated GFR 50; Glucose 139 mg/dL (80-115); Potassium 4.3 mmol/L (3.5-5.1); Sodium 142 mmol/L (136-145)
[2023-06-13 04:37] LABS: #Basophils Less than 0.03 10x3/uL (0.0-0.2); %Basophils 0.4 % (0.0-1.0); %Lymphocytes 34.7 % (21.0-51.0); %Neutrophils 47.7 % (42.0-75.0); Hematocrit 36.1 % (42.0-52.0); Hemoglobin 11.3 g/dL (14.0-18.0); Mean Corpuscular HGB CONC 31.3 g/dL (32.0-36.0); Mean Corpuscular Hemoglobin 29.4 pg (27.0-31.0); Mean Platelet Volume 11.2 fL (7.4-10.4); Platelet Count 182 10x3/uL (130-400); RBC Distribution Width 14.2 % (11.5-14.5); Red Blood Cell (RBC) Count 3.84 mill/uL (4.70-6.10)
[2023-06-13 05:03] LABS: Anion Gap 15 mmol/L (10-20); BUN (Urea Nitrogen) 27 mg/dL (8.4-25.7); Calc. Creatinine Clearance 93 mL/min (70-130); Calcium 9.4 mg/dL (7.8-10.44); Carbon Dioxide 32 mmol/L (23-31); Chloride 99 mmol/L (98-107); Estimated GFR 46; Glucose 146 mg/dL (80-115); Potassium 4.1 mmol/L (3.5-5.1); Sodium 142 mmol/L (136-145)
[2023-06-13] MEDS ORDERED: Lidocaine 2% 6 ML (Jelly) SYR ONE (07:01)
[2023-06-13] MEDS ORDERED: Benzocaine 20% Spray 60 ML CAN ONE (07:29)
[2023-06-13] MEDS ORDERED: Midazolam HCl 2 mg/2 ml Vial ONE (07:32)
[2023-06-13] MEDS ORDERED: KETAMINE 100 MG/ML (5ML VIAL) ONE (07:33)
[2023-06-13] MEDS ORDERED: PROPOFOL 0 ML ONE (08:05)
[2023-06-13 15:47] VITALS: BMI 70.1
[2023-06-14 08:37] VITALS: BP 148/72; TEMP 97.5
[2023-06-14 08:59] LABS: Anion Gap 15 mmol/L (10-20); BUN (Urea Nitrogen) 31 mg/dL (8.4-25.7); Calc. Creatinine Clearance 76 mL/min (70-130); Calcium 9.1 mg/dL (7.8-10.44); Carbon Dioxide 34 mmol/L (23-31); Chloride 96 mmol/L (98-107); Estimated GFR 36; Glucose 149 mg/dL (80-115); Potassium 4.1 mmol/L (3.5-5.1); Sodium 141 mmol/L (136-145)
[2023-06-14] MEDS: Metoprolol Tartrate 25 MG TAB PO SCH (09:07)
[2023-06-14 09:12] LABS: #Basophils 0.04 10x3/uL (0.0-0.2); %Basophils 0.7 % (0.0-1.0); %Eosinophils 5.3 % (0.0-10.0); %Lymphocytes 37.2 % (21.0-51.0); %Monocytes 11.8 % (0.0-10.0); %Neutrophils 44.8 % (42.0-75.0); Hemoglobin 11.5 g/dL (14.0-18.0); Mean Corpuscular HGB CONC 30.3 g/dL (32.0-36.0); Mean Corpuscular Hemoglobin 28.7 pg (27.0-31.0); Mean Corpuscular Volume 94.8 fL (78.0-98.0); Mean Platelet Volume 11.6 fL (7.4-10.4); Platelet Count 188 10x3/uL (130-400); RBC Distribution Width 14.1 % (11.5-14.5); Red Blood Cell (RBC) Count 4.01 mill/uL (4.70-6.10)
[2023-06-14] MEDS ORDERED: Furosemide 80 MG TAB PO SCH (14:00)
[2023-06-24] MEDS ORDERED: Amiodarone 200 MG TAB PO SCH (09:00)
[2023-07-08] MEDS ORDERED: Amiodarone 200 MG TAB PO SCH (09:00)
== END 2023-06-14 11:54 | disposition home or self-care (01) | DRG 291 ==
LOC: SUATTDRO 10:17 → ERS 10:17 → 2SW 15:31
PROVIDERS: ADMIT Family Medicine; ATTEND Hospitalist
PROC: 5A2204Z Restoration of Cardiac Rhythm, Single (ICD-10-PCS; principal; 2023-06-13)
PROC: B24BZZ4 Ultrasonography of Heart with Aorta, Transesophageal (ICD-10-PCS; 2023-06-13)
DX: I13.0 Hypertensive heart and chronic kidney disease with heart failure and stage 1 through stage 4 chronic kidney disease, or unspecified chronic kidney disease (principal); I50.33 Acute on chronic diastolic (congestive) heart failure; J96.01 Acute respiratory failure with hypoxia; N17.9 Acute kidney failure, unspecified; Z68.45 Body mass index [BMI] 70 or greater, adult; Q21.12 Patent foramen ovale; I82.622 Acute embolism and thrombosis of deep veins of left upper extremity; I48.0 Paroxysmal atrial fibrillation; E66.01 Morbid (severe) obesity due to excess calories; N18.9 Chronic kidney disease, unspecified; E11.22 Type 2 diabetes mellitus with diabetic chronic kidney disease; E78.5 Hyperlipidemia, unspecified; F17.210 Nicotine dependence, cigarettes, uncomplicated; Z79.899 Other long term (current) drug therapy; Z79.84 Long term (current) use of oral hypoglycemic drugs; Z79.4 Long term (current) use of insulin; Z79.82 Long term (current) use of aspirin
CPT/HCPCS: 36415; 36416; 71045; 80048; 80053; 80061; 80076; 83036; 83735; 83880; 84443; 84484; 85025; 85610; 85730; 87040; 92960; 93005; 93010; 93306; 93312; 96365; 96375; 97139; J0282; J0456; J0692; J0696; J1815; J1940; J2250; J2704; J3490; J7030; J7050; J7070

== ENCOUNTER 2023-12-08 09:00 | Emergency (ER) | payer SELFPAY | END 2023-12-08 13:06 | disposition short-term general hospital (02) | LOC: ERS 09:09 | DX: I13.0 Hypertensive heart and chronic kidney disease with heart failure and stage 1 through stage 4 chronic kidney disease, or unspecified chronic kidney disease (principal); E11.22 Type 2 diabetes mellitus with diabetic chronic kidney disease; I50.9 Heart failure, unspecified; N18.9 Chronic kidney disease, unspecified; F17.210 Nicotine dependence, cigarettes, uncomplicated; E78.5 Hyperlipidemia, unspecified; Z79.899 Other long term (current) drug therapy | CPT/HCPCS: 96374 ==

== ENCOUNTER 2023-12-08 09:08 | Inpatient (IN) | payer SELFPAY ==
[2023-12-08 09:41] LABS: #Basophils 0.03 10x3/uL (0.0-0.2); %Basophils 0.4 % (0.0-1.0); %Eosinophils 3.4 % (0.0-10.0); %Lymphocytes 25.6 % (21.0-51.0); %Monocytes 6.3 % (0.0-10.0); %Neutrophils 63.9 % (42.0-75.0); Hematocrit 31.9 % (42.0-52.0); Mean Corpuscular HGB CONC 31.3 g/dL (32.0-36.0); Mean Corpuscular Hemoglobin 30.4 pg (27.0-31.0); Mean Platelet Volume 12.3 fL (7.4-10.4); Platelet Count 155 10x3/uL (130-400); RBC Distribution Width 14.4 % (11.5-14.5); Red Blood Cell (RBC) Count 3.29 mill/uL (4.70-6.10)
[2023-12-08 10:21] LABS: Troponin I Less than 0.010 ng/mL (< 0.028)
[2023-12-08 10:32] LABS: ALT (SGPT) 12 U/L (8-55); AST (SGOT) 15 U/L (5-34); Albumin 3.9 g/dL (3.4-4.8); Alkaline Phosphatase 106 U/L (40-110); Anion Gap 17 mmol/L (10-20); BUN (Urea Nitrogen) 42 mg/dL (8.4-25.7); Bilirubin, Total 0.8 mg/dL (0.2-1.2); Calc. Creatinine Clearance 0 mL/min (70-130); Calcium 8.6 mg/dL (7.8-10.44); Carbon Dioxide 18 mmol/L (23-31); Chloride 111 mmol/L (98-107); Estimated GFR 26; Globulin 3.3 g/dL (2.4-3.5); Glucose 163 mg/dL (80-115); Potassium 4.4 mmol/L (3.5-5.1); Protein, Total 7.2 g/dL (5.8-8.1); Sodium 142 mmol/L (136-145)
[2023-12-08] MEDS ORDERED: Furosemide 40 MG (4 mL) VIAL ONE (10:44)
[2023-12-08] MEDS ORDERED: Nitroglycerin 2% Ointment 1 INCH/1 GM Packet ONE (10:44)
[2023-12-08] MEDS ORDERED: Guaifenesin DM 100-10/5 ML UDCUP PO PRN (11:14)
[2023-12-08] MEDS ORDERED: Ondansetron PF 4 MG/2 ML Vial IVP PRN (11:14)
[2023-12-08] MEDS ORDERED: Acetaminophen 325 MG TAB PO PRN (11:14)
[2023-12-08] MEDS ORDERED: Ondansetron ODT 4 MG TAB PO PRN (11:14)
[2023-12-08] MEDS ORDERED: Dextrose 5% in Water 1,000 ML IV PRN (11:17)
[2023-12-08] MEDS ORDERED: Dextrose 50% Abboject 50 ML SYRINGE SLOW IVP PRN (11:17)
[2023-12-08] MEDS ORDERED: Insulin Lispro 100 UNIT/ML 10 ML VIAL SC PRN (11:17)
[2023-12-08] MEDS ORDERED: Glucagon 1 MG/ML KIT IM PRN (11:17)
[2023-12-08 14:49] VITALS: BMI 60.2
[2023-12-08] MEDS: Amiodarone 200 MG TAB PO SCH (20:24)
[2023-12-08] MEDS: Atorvastatin Calcium 20 MG TAB PO SCH (20:24)
[2023-12-09 05:35] LABS: #Basophils 0.03 10x3/uL (0.0-0.2); %Basophils 0.6 % (0.0-1.0); %Eosinophils 3.4 % (0.0-10.0); %Lymphocytes 33.2 % (21.0-51.0); %Monocytes 8.3 % (0.0-10.0); %Neutrophils 54.3 % (42.0-75.0); Hematocrit 31.9 % (42.0-52.0); Hemoglobin 10.1 g/dL (14.0-18.0); Mean Corpuscular HGB CONC 31.7 g/dL (32.0-36.0); Mean Corpuscular Hemoglobin 30.6 pg (27.0-31.0); Mean Corpuscular Volume 96.7 fL (78.0-98.0); Mean Platelet Volume 12.6 fL (7.4-10.4); Platelet Count 156 10x3/uL (130-400); RBC Distribution Width 14.4 % (11.5-14.5)
[2023-12-09 05:58] LABS: ALT (SGPT) 10 U/L (8-55); AST (SGOT) 14 U/L (5-34); Albumin 3.5 g/dL (3.4-4.8); Alkaline Phosphatase 93 U/L (40-110); Anion Gap 15 mmol/L (10-20); BUN (Urea Nitrogen) 38 mg/dL (8.4-25.7); Bilirubin, Total 0.7 mg/dL (0.2-1.2); Calc. Creatinine Clearance 69 mL/min (70-130); Calcium 9.2 mg/dL (7.8-10.44); Carbon Dioxide 21 mmol/L (23-31); Chloride 111 mmol/L (98-107); Estimated GFR 30; Globulin 3.4 g/dL (2.4-3.5); Glucose 107 mg/dL (80-115); Potassium 4.1 mmol/L (3.5-5.1); Protein, Total 6.9 g/dL (5.8-8.1); Sodium 143 mmol/L (136-145)
[2023-12-09] MEDS: Furosemide 40 MG (4 mL) VIAL SLOW IVP SCH (08:52)
[2023-12-09] MEDS: Insulin Glargine 30 UNITS/0.3 ML VIAL SC SCH (08:52)
[2023-12-09] MEDS: Apixaban 5 MG TAB PO SCH (08:53)
[2023-12-09] MEDS: Metoprolol Tartrate 25 MG TAB PO SCH (08:53)
[2023-12-10 04:30] LABS: #Basophils 0.03 10x3/uL (0.0-0.2); %Basophils 0.6 % (0.0-1.0); %Lymphocytes 38.4 % (21.0-51.0); %Monocytes 9.2 % (0.0-10.0); %Neutrophils 47.6 % (42.0-75.0); Hematocrit 30.1 % (42.0-52.0); Hemoglobin 9.7 g/dL (14.0-18.0); Mean Corpuscular HGB CONC 32.2 g/dL (32.0-36.0); Mean Corpuscular Hemoglobin 30.9 pg (27.0-31.0); Mean Corpuscular Volume 95.9 fL (78.0-98.0); Platelet Count 147 10x3/uL (130-400); RBC Distribution Width 14.1 % (11.5-14.5); Red Blood Cell (RBC) Count 3.14 mill/uL (4.70-6.10)
[2023-12-10 05:08] LABS: Anion Gap 16 mmol/L (10-20); BUN (Urea Nitrogen) 37 mg/dL (8.4-25.7); Calc. Creatinine Clearance 73 mL/min (70-130); Carbon Dioxide 23 mmol/L (23-31); Chloride 106 mmol/L (98-107); Estimated GFR 33; Glucose 102 mg/dL (80-115); Potassium 4.3 mmol/L (3.5-5.1); Sodium 141 mmol/L (136-145)
[2023-12-10] MEDS: NIFEdipine XL 60 MG ER.TAB PO SCH (09:17)
[2023-12-11 04:33] LABS: #Basophils 0.03 10x3/uL (0.0-0.2); %Basophils 0.6 % (0.0-1.0); %Lymphocytes 34.7 % (21.0-51.0); %Monocytes 8.4 % (0.0-10.0); %Neutrophils 52.1 % (42.0-75.0); Hematocrit 30.7 % (42.0-52.0); Hemoglobin 9.8 g/dL (14.0-18.0); Mean Corpuscular HGB CONC 31.9 g/dL (32.0-36.0); Mean Corpuscular Hemoglobin 30.3 pg (27.0-31.0); Mean Platelet Volume 11.9 fL (7.4-10.4); Platelet Count 166 10x3/uL (130-400); Red Blood Cell (RBC) Count 3.23 mill/uL (4.70-6.10)
[2023-12-11 05:07] LABS: Anion Gap 16 mmol/L (10-20); BUN (Urea Nitrogen) 39 mg/dL (8.4-25.7); Calc. Creatinine Clearance 64 mL/min (70-130); Calcium 8.6 mg/dL (7.8-10.44); Carbon Dioxide 21 mmol/L (23-31); Chloride 105 mmol/L (98-107); Estimated GFR 29; Glucose 114 mg/dL (80-115); Sodium 138 mmol/L (136-145)
[2023-12-11] MEDS: Furosemide 40 MG (4 mL) VIAL SLOW IVP SCH (08:36)
[2023-12-12 09:05] LABS: Anion Gap 16 mmol/L (10-20); BUN (Urea Nitrogen) 41 mg/dL (8.4-25.7); Calc. Creatinine Clearance 60 mL/min (70-130); Calcium 9.2 mg/dL (7.8-10.44); Carbon Dioxide 23 mmol/L (23-31); Chloride 106 mmol/L (98-107); Estimated GFR 28; Glucose 115 mg/dL (80-115); Potassium 4.1 mmol/L (3.5-5.1); Sodium 141 mmol/L (136-145)
[2023-12-13 04:32] LABS: Anion Gap 13 mmol/L (10-20); BUN (Urea Nitrogen) 44 mg/dL (8.4-25.7); Calc. Creatinine Clearance 57 mL/min (70-130); Calcium 8.6 mg/dL (7.8-10.44); Carbon Dioxide 24 mmol/L (23-31); Chloride 104 mmol/L (98-107); Estimated GFR 26; Glucose 117 mg/dL (80-115); Potassium 3.7 mmol/L (3.5-5.1); Sodium 137 mmol/L (136-145)
[2023-12-13 11:55] VITALS: BP 140/64; TEMP 98.2
== END 2023-12-13 13:05 | disposition home or self-care (01) | DRG 291 ==
LOC: ERS 09:08 → SUATTDRO 09:08 → ERHOLD 11:16 → 2NO 13:31 → OBSVTOIN 12-09 08:08
PROVIDERS: ADMIT Internal Medicine; ATTEND Internal Medicine
DX: I13.0 Hypertensive heart and chronic kidney disease with heart failure and stage 1 through stage 4 chronic kidney disease, or unspecified chronic kidney disease (principal); I50.33 Acute on chronic diastolic (congestive) heart failure; Z68.43 Body mass index [BMI] 50.0-59.9, adult; N17.9 Acute kidney failure, unspecified; I48.20 Chronic atrial fibrillation, unspecified; E11.22 Type 2 diabetes mellitus with diabetic chronic kidney disease; E78.5 Hyperlipidemia, unspecified; N18.9 Chronic kidney disease, unspecified; E66.01 Morbid (severe) obesity due to excess calories; Z79.01 Long term (current) use of anticoagulants; Z79.4 Long term (current) use of insulin
CPT/HCPCS: 36415; 36416; 71045; 80048; 80053; 83605; 83880; 84484; 85025; 93005; 94760; 97139; G0378; J1815; J1940

== ENCOUNTER 2024-02-06 14:25 | Inpatient (IN) | payer SELFPAY ==
[2024-02-06 14:54] LABS: #Basophils 0.05 10x3/uL (0.0-0.2); %Basophils 0.8 % (0.0-1.0); %Eosinophils 1.2 % (0.0-10.0); %Lymphocytes 20.1 % (21.0-51.0); %Neutrophils 69.3 % (42.0-75.0); Hematocrit 29.2 % (42.0-52.0); Hemoglobin 9.3 g/dL (14.0-18.0); Mean Corpuscular HGB CONC 31.8 g/dL (32.0-36.0); Mean Corpuscular Hemoglobin 30.3 pg (27.0-31.0); Mean Corpuscular Volume 95.1 fL (78.0-98.0); Mean Platelet Volume 11.9 fL (7.4-10.4); Platelet Count 178 10x3/uL (130-400); RBC Distribution Width 14.6 % (11.5-14.5); Red Blood Cell (RBC) Count 3.07 mill/uL (4.70-6.10)
[2024-02-06] MEDS ORDERED: Furosemide 40 MG (4 mL) VIAL ONE (15:00)
[2024-02-06 15:18] LABS: ALT (SGPT) 14 U/L (8-55); AST (SGOT) 16 U/L (5-34); Albumin 4.1 g/dL (3.4-4.8); Alkaline Phosphatase 116 U/L (40-110); Anion Gap 19 mmol/L (10-20); BUN (Urea Nitrogen) 75 mg/dL (8.4-25.7); Bilirubin, Total 0.9 mg/dL (0.2-1.2); Calc. Creatinine Clearance 0 mL/min (70-130); Calcium 9.2 mg/dL (7.8-10.44); Carbon Dioxide 19 mmol/L (23-31); Chloride 106 mmol/L (98-107); Estimated GFR 21; Glucose 147 mg/dL (80-115); Potassium 5.2 mmol/L (3.5-5.1); Protein, Total 8.1 g/dL (5.8-8.1); Sodium 139 mmol/L (136-145)
[2024-02-06 15:19] LABS: Troponin I 0.015 ng/mL (< 0.028)
[2024-02-06 17:28] VITALS: BMI 53.1
[2024-02-06 17:57] LABS: Troponin I 0.028 ng/mL (< 0.028)
[2024-02-06] MEDS ORDERED: Glucagon 1 MG/ML KIT IM PRN (18:00)
[2024-02-06] MEDS ORDERED: Dextrose 5% in Water 1,000 ML IV PRN (18:00)
[2024-02-06] MEDS ORDERED: Ondansetron ODT 4 MG TAB PO PRN (18:00)
[2024-02-06] MEDS ORDERED: Calcium Carbonate 500 MG ChewTAB PO PRN (18:00)
[2024-02-06] MEDS ORDERED: Senokot S 8.6-50 MG TAB PO PRN (18:00)
[2024-02-06] MEDS ORDERED: Acetaminophen 325 MG TAB PO PRN (18:00)
[2024-02-06] MEDS ORDERED: Insulin Lispro 100 UNIT/ML 10 ML VIAL SC PRN ×2 (18:00)
[2024-02-06] MEDS ORDERED: Dextrose 50% Abboject 50 ML SYRINGE SLOW IVP PRN (18:00)
[2024-02-06] MEDS ORDERED: Ondansetron PF 4 MG/2 ML Vial IVP PRN (18:00)
[2024-02-06 19:16] LABS: Magnesium 2.8 mg/dL (1.6-2.6)
[2024-02-06 21:12] LABS: Troponin I 0.027 ng/mL (< 0.028)
[2024-02-07 04:40] LABS: #Basophils Less than 0.03 10x3/uL (0.0-0.2); %Basophils 0.3 % (0.0-1.0); %Eosinophils 2.3 % (0.0-10.0); %Lymphocytes 24.4 % (21.0-51.0); %Monocytes 8.6 % (0.0-10.0); %Neutrophils 63.8 % (42.0-75.0); Hematocrit 27.9 % (42.0-52.0); Hemoglobin 8.6 g/dL (14.0-18.0); Mean Corpuscular HGB CONC 30.8 g/dL (32.0-36.0); Mean Corpuscular Hemoglobin 29.8 pg (27.0-31.0); Mean Corpuscular Volume 96.5 fL (78.0-98.0); Mean Platelet Volume 11.7 fL (7.4-10.4); Platelet Count 161 10x3/uL (130-400); RBC Distribution Width 14.6 % (11.5-14.5); Red Blood Cell (RBC) Count 2.89 mill/uL (4.70-6.10)
[2024-02-07 05:05] LABS: Anion Gap 16 mmol/L (10-20); BUN (Urea Nitrogen) 79 mg/dL (8.4-25.7); Calc. Creatinine Clearance 50 mL/min (70-130); Calcium 8.7 mg/dL (7.8-10.44); Carbon Dioxide 19 mmol/L (23-31); Chloride 109 mmol/L (98-107); Estimated GFR 21; Glucose 137 mg/dL (80-115); Sodium 139 mmol/L (136-145)
[2024-02-07] MEDS: Furosemide 40 MG (4 mL) VIAL SLOW IVP SCH ×2 (05:39→15:50)
[2024-02-07] MEDS: Amiodarone 200 MG TAB PO SCH (09:29)
[2024-02-07] MEDS: Insulin Glargine 30 UNITS/0.3 ML VIAL SC SCH (09:29)
[2024-02-07] MEDS: Metoprolol Tartrate 25 MG TAB PO SCH (09:29)
[2024-02-07] MEDS: NIFEdipine XL 60 MG ER.TAB PO SCH (15:50)
[2024-02-07] MEDS: Furosemide 100 MG (10 mL) VIAL FS SCH (16:30)
[2024-02-08] MEDS: Furosemide 100 MG (10 mL) VIAL SLOW IVP SCH (06:32)
[2024-02-08] MEDS: NIFEdipine XL 60 MG ER.TAB PO SCH (08:18)
[2024-02-08 13:16] LABS: Anion Gap 16 mmol/L (10-20); BUN (Urea Nitrogen) 83 mg/dL (8.4-25.7); Calc. Creatinine Clearance 53 mL/min (70-130); Calcium 9.1 mg/dL (7.8-10.44); Carbon Dioxide 19 mmol/L (23-31); Chloride 106 mmol/L (98-107); Estimated GFR 23; Glucose 165 mg/dL (80-115); Magnesium 2.7 mg/dL (1.6-2.6); Potassium 4.6 mmol/L (3.5-5.1); Sodium 136 mmol/L (136-145)
[2024-02-08] MEDS: Empagliflozin 10 MG TAB PO SCH (14:30)
[2024-02-08] MEDS: Atorvastatin Calcium 20 MG TAB PO SCH (21:02)
[2024-02-09 06:06] LABS: Anion Gap 15 mmol/L (10-20); BUN (Urea Nitrogen) 86 mg/dL (8.4-25.7); Calc. Creatinine Clearance 52 mL/min (70-130); Calcium 8.8 mg/dL (7.8-10.44); Carbon Dioxide 21 mmol/L (23-31); Chloride 107 mmol/L (98-107); Estimated GFR 23; Glucose 133 mg/dL (80-115); Magnesium 2.8 mg/dL (1.6-2.6); Potassium 4.5 mmol/L (3.5-5.1); Sodium 138 mmol/L (136-145)
[2024-02-09 06:11] LABS: Hemoglobin A1c 6.6 % (4.0-6.0)
[2024-02-09] MEDS: NIFEdipine XL 30 MG ER.TAB PO SCH (09:46)
[2024-02-09] MEDS: Albumin 25% 25 GM (100 mL) BOT IVPB SCH (09:48)
[2024-02-09 10:25] LABS: Phosphorus 5.2 mg/dL (2.3-4.7)
[2024-02-09] MEDS: EPOETIN ALFA-EPBX (ESRD) 40,000 UNITS/ML VIAL SC SCH (12:59)
[2024-02-09] MEDS: Furosemide 40 MG (4 mL) VIAL SLOW IVP SCH (15:00)
[2024-02-09 15:36] LABS: Bacteria/HPF None Seen HPF (None Seen); Bilirubin Negative (Negative); Blood, Urine Negative (Negative); Clarity Clear (Clear); Glucose, Urine (Dipstick) 500 mg/dL (Negative); Ketone, Urine Negative (Negative); Leukocyte Negative Leu/uL (Negative); Nitrite Negative (Negative); Protein, Urine (Dipstick) 70 mg/dL (Neg-Trace); RBC/HPF 0-3 HPF (0-3); Specific Gravity, Urine 1.009 (1.002-1.036); Squamous Epithelial 0-3 HPF (0-3); Urobilinogen Normal mg/dL (Less than 2); WBC/HPF 0-3 HPF (0-3)
[2024-02-09 16:04] LABS: Creatinine, Urine 48.37 mg/dL (63-166)
[2024-02-10 05:06] LABS: Iron 27 ug/dL (65-175); Iron Binding Capacity, Total 289 mcg/dL (261-462)
[2024-02-10 05:07] LABS: Anion Gap 18 mmol/L (10-20); BUN (Urea Nitrogen) 86 mg/dL (8.4-25.7); Calc. Creatinine Clearance 49 mL/min (70-130); Calcium 8.8 mg/dL (7.8-10.44); Carbon Dioxide 21 mmol/L (23-31); Chloride 108 mmol/L (98-107); Estimated GFR 21; Glucose 112 mg/dL (80-115); Iron 47 ug/dL (65-175); Potassium 4.6 mmol/L (3.5-5.1); Sodium 142 mmol/L (136-145)
[2024-02-10] MEDS: Sodium Ferric Gluconate 250 MG in Sodium Chloride 0.9% 250 ML 250 ML IVPB SCH (09:29)
[2024-02-10] MEDS: Calcitriol 0.25 MCG CAP PO SCH (09:30)
[2024-02-10] MEDS: Amiodarone 200 MG TAB PO SCH (09:30)
[2024-02-11 04:19] LABS: #Basophils Less than 0.03 10x3/uL (0.0-0.2); %Basophils 0.4 % (0.0-1.0); %Eosinophils 4.4 % (0.0-10.0); %Lymphocytes 31.5 % (21.0-51.0); %Monocytes 11.1 % (0.0-10.0); %Neutrophils 52.2 % (42.0-75.0); Hematocrit 28.7 % (42.0-52.0); Mean Corpuscular HGB CONC 31.4 g/dL (32.0-36.0); Mean Corpuscular Hemoglobin 29.4 pg (27.0-31.0); Mean Corpuscular Volume 93.8 fL (78.0-98.0); Mean Platelet Volume 11.6 fL (7.4-10.4); Platelet Count 193 10x3/uL (130-400); RBC Distribution Width 14.6 % (11.5-14.5); Red Blood Cell (RBC) Count 3.06 mill/uL (4.70-6.10)
[2024-02-11 04:35] LABS: Anion Gap 13 mmol/L (10-20); BUN (Urea Nitrogen) 75 mg/dL (8.4-25.7); Calc. Creatinine Clearance 60 mL/min (70-130); Calcium 8.8 mg/dL (7.8-10.44); Carbon Dioxide 26 mmol/L (23-31); Chloride 107 mmol/L (98-107); Estimated GFR 28; Glucose 110 mg/dL (80-115); Potassium 3.9 mmol/L (3.5-5.1); Sodium 142 mmol/L (136-145)
[2024-02-11] MEDS: Ferrous Gluconate 324 MG TAB PO SCH (10:45)
[2024-02-11] MEDS: Fluticasone Propionate Nasal Spray 16 gm Bottle NASAL SCH (11:33)
[2024-02-11] MEDS: Loratadine 10 MG TAB PO SCH (11:34)
[2024-02-11] MEDS: Furosemide 40 MG TAB PO SCH (14:22)
[2024-02-11] MEDS: Senokot S 8.6-50 MG TAB PO SCH (22:12)
[2024-02-12 04:37] LABS: #Basophils 0.03 10x3/uL (0.0-0.2); %Basophils 0.4 % (0.0-1.0); %Eosinophils 3.6 % (0.0-10.0); %Lymphocytes 25.8 % (21.0-51.0); %Monocytes 11.4 % (0.0-10.0); %Neutrophils 58.5 % (42.0-75.0); Hematocrit 29.7 % (42.0-52.0); Hemoglobin 9.3 g/dL (14.0-18.0); Mean Corpuscular HGB CONC 31.3 g/dL (32.0-36.0); Mean Corpuscular Hemoglobin 29.3 pg (27.0-31.0); Mean Corpuscular Volume 93.7 fL (78.0-98.0); Mean Platelet Volume 11.7 fL (7.4-10.4); Platelet Count 205 10x3/uL (130-400); RBC Distribution Width 14.6 % (11.5-14.5); Red Blood Cell (RBC) Count 3.17 mill/uL (4.70-6.10)
[2024-02-12 04:54] LABS: Anion Gap 12 mmol/L (10-20); BUN (Urea Nitrogen) 59 mg/dL (8.4-25.7); Calc. Creatinine Clearance 61 mL/min (70-130); Carbon Dioxide 28 mmol/L (23-31); Chloride 105 mmol/L (98-107); Estimated GFR 29; Glucose 112 mg/dL (80-115); Potassium 3.8 mmol/L (3.5-5.1); Sodium 141 mmol/L (136-145)
[2024-02-12] MEDS: Loratadine 10 MG TAB PO SCH (08:45)
[2024-02-12] MEDS: Fluticasone Propionate Nasal Spray 16 gm Bottle NASAL SCH (08:46)
[2024-02-13 04:41] LABS: #Basophils Less than 0.03 10x3/uL (0.0-0.2); %Basophils 0.3 % (0.0-1.0); %Eosinophils 1.4 % (0.0-10.0); %Lymphocytes 23.3 % (21.0-51.0); %Monocytes 11.5 % (0.0-10.0); %Neutrophils 63.2 % (42.0-75.0); Hematocrit 29.3 % (42.0-52.0); Hemoglobin 9.3 g/dL (14.0-18.0); Mean Corpuscular HGB CONC 31.7 g/dL (32.0-36.0); Mean Corpuscular Hemoglobin 29.9 pg (27.0-31.0); Mean Corpuscular Volume 94.2 fL (78.0-98.0); Mean Platelet Volume 11.1 fL (7.4-10.4); Platelet Count 191 10x3/uL (130-400); Red Blood Cell (RBC) Count 3.11 mill/uL (4.70-6.10)
[2024-02-13 05:02] LABS: Anion Gap 15 mmol/L (10-20); BUN (Urea Nitrogen) 42 mg/dL (8.4-25.7); Calc. Creatinine Clearance 70 mL/min (70-130); Calcium 8.6 mg/dL (7.8-10.44); Carbon Dioxide 24 mmol/L (23-31); Chloride 105 mmol/L (98-107); Estimated GFR 35; Glucose 129 mg/dL (80-115); Potassium 3.5 mmol/L (3.5-5.1); Sodium 140 mmol/L (136-145)
[2024-02-13 11:43] VITALS: BP 122/63; TEMP 98.3
[2024-02-13 14:37] LABS: Albumin 3.4 g/dL (2.9-4.4); Alpha 1 0.3 g/dL (0.0-0.4); Alpha 2 1.1 g/dL (0.4-1.0); Beta 1.1 g/dL (0.7-1.3); Globulin, Total 3.5 g/dL (2.2-3.9); M-Spike Not Observed g/dL (Not Observed)
[2024-02-16] MEDS ORDERED: Ergocalciferol 1.25 MG(50,000 UNITS) CAP PO SCH (09:00)
== END 2024-02-13 17:55 | disposition home or self-care (01) | DRG 291 ==
LOC: ERS 14:25 → ERHOLD 16:31 → 2NO 18:38
PROVIDERS: ADMIT Internal Medicine; ATTEND Family Medicine
DX: I13.0 Hypertensive heart and chronic kidney disease with heart failure and stage 1 through stage 4 chronic kidney disease, or unspecified chronic kidney disease (principal); I50.33 Acute on chronic diastolic (congestive) heart failure; J96.01 Acute respiratory failure with hypoxia; N17.9 Acute kidney failure, unspecified; Z68.42 Body mass index [BMI] 45.0-49.9, adult; N25.81 Secondary hyperparathyroidism of renal origin; E87.20 Acidosis, unspecified; D50.9 Iron deficiency anemia, unspecified; D63.1 Anemia in chronic kidney disease; E11.22 Type 2 diabetes mellitus with diabetic chronic kidney disease; I48.0 Paroxysmal atrial fibrillation; E78.5 Hyperlipidemia, unspecified; N18.30 Chronic kidney disease, stage 3 unspecified; E66.01 Morbid (severe) obesity due to excess calories; F17.210 Nicotine dependence, cigarettes, uncomplicated; Z79.01 Long term (current) use of anticoagulants; Z79.899 Other long term (current) drug therapy
CPT/HCPCS: 36415; 36416; 71045; 76770; 80048; 80053; 81001; 82306; 82570; 82728; 83036; 83540; 83550; 83735; 83880; 83970; 84100; 84155; 84156; 84165; 84484; 85025; 93005; 96374; J1815; J1940; J2916; J7050; P9047; Q5105